=== PATIENT | female | born 1990 | race Caucasian/White ===

== ENCOUNTER 2022-04-14 11:38 | Emergency (ER) | payer MEDICAID ==
[2022-04-14 12:51] LABS: ACETAMINOPHEN <2.0 ug/mL; BLOOD UREA NITROGEN,BUN 17 mg/dL (7.0-18.0); CARBON DIOXIDE,CO2 25.1 mmol/L (21.0-32.0); CHLORIDE,CL 101 mmol/L (98-107); GLUCOSE RANDOM 89 mg/dL (74-106); POTASSIUM,K 3.6 mmol/L (3.5-5.1); SODIUM,NA 135 mmol/L (136-145)
== END 2022-04-14 13:14 | disposition home or self-care (01) ==
LOC: MW.ED 11:38
DX: F32.A Depression, unspecified (principal); Z79.899 Other long term (current) drug therapy; Z20.822 Contact with and (suspected) exposure to COVID-19
CPT/HCPCS: 36415; 80053; 80143; 80179; 80305-QW; 80307; 81003; 81025; 83735; 84443; 85025; 99283; 99284; U0002